=== PATIENT | female | born 1955 | race Asian ===

== ENCOUNTER → 2023-11-28 18:13 | Outpatient (REF) | payer OTHER, SELFPAY | LOC: MRI 18:13 | PROVIDERS: ATTENDING PHYSICIAN Orthopaedic Surgery; FAMILY PHYSICIAN Family Medicine | DX: M25.532 Pain in left wrist (principal); M25.531 Pain in right wrist | CPT/HCPCS: 73221 ==

== ENCOUNTER → 2024-02-14 15:37 | Outpatient (REF) | payer OTHER, SELFPAY | LOC: RAD 15:37 | PROVIDERS: ATTENDING PHYSICIAN Nurse Practitioner Family | DX: M79.661 Pain in right lower leg (principal); M79.662 Pain in left lower leg | CPT/HCPCS: 93970 ==

== ENCOUNTER → 2024-06-01 12:05 | Outpatient (REF) | payer OTHER, SELFPAY | LOC: RAD 12:05 | PROVIDERS: ATTENDING PHYSICIAN Nurse Practitioner Family | DX: R51.9 Headache, unspecified (principal) | CPT/HCPCS: 70450; 70490 ==

== ENCOUNTER → 2024-12-10 15:13 | Outpatient (REF) | payer OTHER, SELFPAY | LOC: WDC 15:13 | PROVIDERS: ATTENDING PHYSICIAN Nurse Practitioner Family; FAMILY PHYSICIAN Family Medicine | DX: Z12.31 Encounter for screening mammogram for malignant neoplasm of breast (principal) | CPT/HCPCS: 77063; 77067 ==

== ENCOUNTER → 2024-12-20 14:58 | Outpatient (REF) | payer OTHER, SELFPAY | LOC: RAD 14:58 | PROVIDERS: ATTENDING PHYSICIAN Student in an Organized Health Care Education/Training Program; FAMILY PHYSICIAN Family Medicine | DX: R68.84 Jaw pain (principal) | CPT/HCPCS: 76536 ==

== ENCOUNTER → 2025-04-04 12:42 | Outpatient (REF) | payer OTHER, SELFPAY | LOC: MRI 3T 12:42 | PROVIDERS: ATTENDING PHYSICIAN Nurse Practitioner Family | DX: R51.9 Headache, unspecified (principal) | CPT/HCPCS: 70551 ==

== ENCOUNTER → 2025-07-15 14:37 | Outpatient (REF) | payer OTHER, SELFPAY | LOC: RAD 14:37 | PROVIDERS: ATTENDING PHYSICIAN Specialist; FAMILY PHYSICIAN Nurse Practitioner Family | DX: I82.401 Acute embolism and thrombosis of unspecified deep veins of right lower extremity (principal) | CPT/HCPCS: 93971 ==